=== PATIENT | female | born 1985 | race Caucasian/White ===

== ENCOUNTER 2019-01-26 20:06 | Inpatient (IN) | payer OTHER ==
[~2019-01-26] VITALS: Ht 165.1 cm; Wt 76.3 kg
[2019-01-26] MEDS ORDERED: SODIUM CHLORIDE 0.9% 1,000 ML IV ONE (21:30)
[2019-01-26] MEDS ORDERED: MORPHINE SULFATE 4 MG/ML SYR/VIAL IV ONE (21:30)
[2019-01-26] MEDS ORDERED: ONDANSETRON HCL 4 MG/2 ML VIAL IV ONE (21:30)
[2019-01-26 21:50] LABS: Basophils # (auto) 0.1 uL; Basophils % (auto) 1.1 % (0.0-2.0); Eosinophils # (auto) 0.2 uL; Eosinophils % (auto) 3.2 % (0.0-7.0); Hematocrit 38.5 % (36.0-46.0); Hemoglobin 13.5 g/dL (12.2-16.2); Lymphocytes # (auto) 1.1 uL; Lymphocytes % (auto) 15.1 % (10.0-50.0); Mean Corpuscular Hgb Conc. 34.9 g/dL (32.0-36.0); Mean Corpuscular Volume 88.7 fL (80.0-100.0); Monocytes # (auto) 0.4 uL; Monocytes % (auto) 5.5 % (0.0-12.0); Neutrophils # (auto) 5.3 uL; Neutrophils % (auto) 75.1 % (37.0-80.0); Nucleated Red Blood Cells % 0.1 %; Platelet Count (auto) 285 10^3/uL (140-450); Red Blood Cells 4.34 10^6/uL (4.0-5.20); Red Cell Distribution Width 12.5 % (11.8-14.3); White Blood Cell 7.1 10^3/uL (4.4-10.8)
[2019-01-26 21:59] LABS: Urine Bacteria NONE SEEN /hpf (None Seen); Urine Blood 3+ /uL (Negative); Urine Specific Gravity 1.004 (1.001-1.035); Urine WBC 32 /hpf (0 - 5)
[2019-01-26 22:08] LABS: Albumin 3.5 g/dL (3.4-5.0); BUN/Creatinine Ratio 21.1; Calcium 8.7 mg/dL (8.5-10.1); Potassium 3.9 mmol/L (3.5-5.1)
[2019-01-26 22:16] LABS: Bilirubin, Total 1.1 mg/dL (0.2-1.0); Total Protein 7.2 g/dL (6.4-8.2)
[2019-01-27] VITALS (7 sets, daily range): BP systolic 110–126; BP diastolic 65–73
[2019-01-27] MEDS ORDERED: MORPHINE SULFATE 4 MG/ML SYR/VIAL IV ONE (00:45)
[2019-01-27] MEDS ORDERED: ONDANSETRON HCL 4 MG/2 ML VIAL IV ONE (00:45)
[2019-01-27] MEDS ORDERED: PANTOPRAZOLE 40 MG/10 ML VIAL INJ IV ONE ×2 (01:00→14:15)
[2019-01-27] MEDS ORDERED: HYDROcodone-ACET 5/325MG TAB PO PRN (02:30)
[2019-01-27] MEDS ORDERED: D5W/SOD CHL 0.45% 1,000 ML IV SCH (02:30)
[2019-01-27] MEDS ORDERED: DOCUSATE SOD 100 MG CAP PO PRN (02:30)
[2019-01-27] MEDS ORDERED: DEXTROSE (50%) 50ML SYRG IV PRN (02:30)
--- NOTE | 2019-01-27 03:40 | NUR ---
MS admit from ER [facility] admitted to tele/MS. Patient oriented to Dimple Montague, primary RN, unit, room, bed, and unit policies regarding patient care and visiting hours. Patient weighed by bedscale and encouraged to call if they need something. All questions and concerns addressed, patient verbalized understanding.
[2019-01-27] MEDS: MORPHINE SULFATE 4 MG/ML SYR/VIAL IV PRN ×2 (05:28→09:27)
[2019-01-27] MEDS: InsuLIN REG 1unit/0.01ml Soln (100units/ml) SC SCH ×2 (05:29→11:36)
[2019-01-27] MEDS: ACCU-CHEK COMFORT CURVE STRIP VI SCH ×2 (05:29→11:35)
[2019-01-27] MEDS ORDERED: PAR20T PO (05:35)
[2019-01-27] MEDS ORDERED: THYR90TA PO (05:35)
[2019-01-27] MEDS ORDERED: RANI-185 PO (05:39)
[2019-01-27] MEDS ORDERED: MULTTAB61 OR (05:39)
[2019-01-27] MEDS ORDERED: MELO1TAB56 PO (05:39)
[2019-01-27] MEDS ORDERED: CALCTAB25 PO (05:39)
[2019-01-27] MEDS ORDERED: FERR-7 PO (05:39)
[2019-01-27] MEDS ORDERED: OMEP20TA PO (05:39)
[2019-01-27] MEDS ORDERED: GABA300C10 PO (05:39)
[2019-01-27] MEDS ORDERED: BACL20TA PO (05:39)
--- NOTE | 2019-01-27 08:05 | NUR ---
Received pt sleeping, resting comfortably, call light within reach, no pain or distress noted at this time, will continue to monitor pt.
--- NOTE | 2019-01-27 11:13 | NUR ---
Called and spoke to Dr. Marquez regarding pt having nausea and no PRN nausea medication order on file, orders received for zofran 4 mg iv Q4hr PRN.
[2019-01-27] MEDS ORDERED: ONDANSETRON HCL 4 MG/2 ML VIAL ONE (11:21)
[2019-01-27] MEDS: ONDANSETRON HCL 4 MG/2 ML VIAL IV PRN ×3 (11:31→20:53)
--- NOTE | 2019-01-27 13:00 | NUR ---
Page Dr. Marquez to inform her that pt still having nausea and vomiting even after the zofran given, as per Dr. Marquez she will come and see pt soon.
[2019-01-27] MEDS ORDERED: METOCLOPRAMIDE HCL 5MG/ml INJ 2ml VIAL ONE (13:06)
--- NOTE | 2019-01-27 13:15 | NUR ---
Dr. Marquez at bed side to see pt. Doctor discussed the plan of care with pt.
[2019-01-27 13:42] LABS: Hepatitis A Ab IgM Negative; Hepatitis B Core IgM Negative; Hepatitis B Surface Antigen Negative (Negative)
[2019-01-27 13:43] LABS: Hepatitis C Antibody Negative (Negative)
[2019-01-27] MEDS: D5W/SOD CHL 0.45%/KCL 20MEQ 1,000 ML IV SCH ×3 (13:48→21:51)
[2019-01-27] MEDS: KETOROLAC TROMETH 30 MG/ML 1ML VIAL IV PRN ×2 (13:49→20:53)
[2019-01-27 13:55] LABS: Amylase 59 U/L (25-115); Lipase 168 U/L (73-393)
[2019-01-27 13:57] LABS: INR 1.08 (0.9-1.15)
[2019-01-27 14:00] LABS: Albumin 3.7 g/dL (3.4-5.0); Calcium 8.5 mg/dL (8.5-10.1); Potassium 3.3 mmol/L (3.5-5.1)
[2019-01-27 14:07] LABS: BUN/Creatinine Ratio 18.9; Bilirubin, Total 0.9 mg/dL (0.2-1.0); Total Protein 6.8 g/dL (6.4-8.2)
[2019-01-27 16:02] LABS: Alcohol, Urine < 3.0 mg/dL (0-5); Amphetamine Screen, Urine NEGATIVE (NEGATIVE); Barbiturate Scree,Urine NEGATIVE (NEGATIVE); Benzodiazephine Screen, Urine NEGATIVE (NEGATIVE); Cannabinoid Screen, Urine POSITIVE (NEGATIVE); Cocaine Screen, Urine NEGATIVE (NEGATIVE); Phencyclidine Screen, Urine NEGATIVE (NEGATIVE)
[2019-01-27] MEDS ORDERED: POTASSIUM CHLORIDE 20 MEQ, LIDOCAINE 1% (LOCAL ANESTH.) 2 ML in SODIUM CHL 0.9% 100 ML IV ONE (16:15)
[2019-01-27 16:24] LABS: Opiate Scree,Urine POSITIVE (NEGATIVE)
[2019-01-27] MEDS: MORPHINE SULF INJ 2 MG/ML SYRINGE 1ML IV PRN (17:14)
[2019-01-27] MEDS: METOCLOPRAMIDE HCL 5MG/ml INJ 2ml VIAL IV PRN (21:51)
[2019-01-28] MEDS: KETOROLAC TROMETH 30 MG/ML 1ML VIAL IV PRN ×3 (04:56→17:55)
[2019-01-28] MEDS: D5W/SOD CHL 0.45%/KCL 20MEQ 1,000 ML IV SCH ×3 (04:57→23:42)
--- NOTE | 2019-01-28 04:58 | NUR ---
PT C/O ABDOMINAL PAIN 09/18 REQUESTING PAIN MEDICATION BUT REFUSES MORPHINE DUE TO DEVLIN. ADMINSITERED TORADOL 15MG IV PRESCRIBED. WILL CONTINUE TO MONITOR PATIENT.
[2019-01-28 05:00] VITALS: BP 94/67
[2019-01-28 06:30] LABS: Basophils # (auto) 0 uL; Basophils % (auto) 0.6 % (0.0-2.0); Eosinophils # (auto) 0.2 uL; Eosinophils % (auto) 3.3 % (0.0-7.0); Hematocrit 37.6 % (36.0-46.0); Hemoglobin 13.1 g/dL (12.2-16.2); Lymphocytes # (auto) 1.5 uL; Lymphocytes % (auto) 26.8 % (10.0-50.0); Mean Corpuscular Hemoglobin 31.3 pg (28.0-32.0); Mean Corpuscular Hgb Conc. 34.7 g/dL (32.0-36.0); Monocytes # (auto) 0.3 uL; Neutrophils # (auto) 3.7 uL; Neutrophils % (auto) 64.3 % (37.0-80.0); Platelet Count (auto) 243 10^3/uL (140-450); Red Blood Cells 4.17 10^6/uL (4.0-5.20); Red Cell Distribution Width 12.5 % (11.8-14.3); White Blood Cell 5.8 10^3/uL (4.4-10.8)
[2019-01-28 06:44] LABS: Albumin 3.4 g/dL (3.4-5.0); Calcium 8.6 mg/dL (8.5-10.1); Potassium 4.1 mmol/L (3.5-5.1)
--- NOTE | 2019-01-28 06:49 | NUR ---
PRE-OP PATIENT TRANSPORTED VIA GURNEY TO OR FOR [facility]ST[facility] WITH DR DODD TODAY.
[2019-01-28 06:54] LABS: BUN/Creatinine Ratio 17.2; Bilirubin, Total 0.5 mg/dL (0.2-1.0); Total Protein 6.5 g/dL (6.4-8.2)
[2019-01-28] MEDS ORDERED: NEOSTIGMINE 1 MG/ML INJ (10mg/10ML VIAL) IV ONE (07:18)
[2019-01-28] MEDS ORDERED: POVIDONE IODINE 10 % TOPICAL OINT 30GM TOP ONE (07:18)
[2019-01-28] MEDS ORDERED: GLYCOPYRROLATE 0.2 MG/ML 1ML VIAL IV ONE (07:18)
[2019-01-28] MEDS ORDERED: LEVOFLOXACIN 500MG 100 ML IV ONE (07:26)
[2019-01-28] MEDS ORDERED: ePHEDrine SULFATE 50 MG/ML AMP IV PRN (07:45)
[2019-01-28] MEDS ORDERED: ACCU-CHEK COMFORT CURVE STRIP VI ONE (07:45)
[2019-01-28] MEDS ORDERED: KETOROLAC TROMETH 30 MG/ML 1ML VIAL IV ONE (07:45)
[2019-01-28] MEDS ORDERED: HYDROmorphone HCL 2 MG/ML VL IV PRN (07:45)
[2019-01-28] MEDS ORDERED: fentaNYL CITRATE 100 MCG/2 ML VL ONE (07:45)
[2019-01-28] MEDS ORDERED: MIDAZOLAM HCL 1MG/1ML-2 ML VIAL ONE (07:45)
[2019-01-28] MEDS ORDERED: MORPHINE SULFATE 4 MG/ML SYR/VIAL IV PRN (07:45)
[2019-01-28] MEDS ORDERED: MEPERIDINE HCL (50 MG/ML) 1 ML VIAL ONE (07:45)
[2019-01-28] MEDS ORDERED: ONDANSETRON HCL 4 MG/2 ML VIAL IV PRN (07:45)
[2019-01-28] MEDS ORDERED: LABETALOL HCL 5 MG/ML 4ML SYRINGE IV PRN (07:45)
[2019-01-28] MEDS ORDERED: MIDAZOLAM HCL 1MG/1ML-2 ML VIAL IV PRN (07:45)
[2019-01-28] MEDS ORDERED: PROPOFOL 10 MG/ML 20 ML IV ONE (08:28)
[2019-01-28] MEDS ORDERED: ROCURONIUM 10MG/ML 10ML VIAL IV ONE (08:28)
[2019-01-28] MEDS ORDERED: DexAMETHasone SOD PHOS 10MG/1ML VIAL INJ ONE (08:28)
--- NOTE | 2019-01-28 09:00 | NUR ---
OPENING SHIFT NOTE ASSUMED CARE OF PT. PT RETURNED FROM POST OP AFTER LAP DESTINY WITH DR DODD. NO SOB OR SIGNS OF DISTRESS NOTED. FAMILY MEMBER IN ROOM. INSTRUCTED ON POC AND TO CALL FOR HELP PRN. BED IN LOWEST POSITION WITH SIDE RAILS UP X2. WILL CONTINUE TO MONITOR.
[2019-01-28] MEDS: PANTOPRAZOLE 40 MG/10 ML VIAL INJ IV SCH (11:06)
[2019-01-28] MEDS: METOCLOPRAMIDE HCL 5MG/ml INJ 2ml VIAL IV PRN ×2 (11:07→19:48)
[2019-01-28 13:00] VITALS: BP 100/68
[2019-01-28 17:00] VITALS: BP 117/74
[2019-01-28 22:00] VITALS: BP 110/77
--- NOTE | 2019-01-28 22:05 | NUR ---
PT C/O 09/18 ABDOMINAL PAIN S/P LAP DESTINY TODAY REQUESTING PAIN MEDICATION. PATIENT REFUSES TO TAKE MORPHINE BECAUSE OF SIDE EFFECTS OF HEADACHE AND REQUESTING A DIFFERENT MEDICATION. PAGED HOSPITALIST AWAITING ORDERS.
[2019-01-28] MEDS ORDERED: HYDROcodone-ACET 7.5/325MG TAB PO ONE (23:00)
[2019-01-29] MEDS: KETOROLAC TROMETH 30 MG/ML 1ML VIAL IV PRN ×3 (04:13→20:18)
[2019-01-29] MEDS: METOCLOPRAMIDE HCL 5MG/ml INJ 2ml VIAL IV PRN (04:13)
[2019-01-29 05:00] VITALS: BP 120/61
--- NOTE | 2019-01-29 05:30 | NUR ---
PT S/O 09/18 ABDOMINAL PAIN. ADMINISTERED TORADOL AND REGLAN IV PRESCRIBED. PATIENT STATES SHE HAS + FLATUS BUT NO BM YET.
[2019-01-29 06:44] LABS: Basophils # (auto) 0 uL; Basophils % (auto) 0.3 % (0.0-2.0); Eosinophils # (auto) 0.1 uL; Hematocrit 35.3 % (36.0-46.0); Hemoglobin 12.1 g/dL (12.2-16.2); Lymphocytes % (auto) 33.4 % (10.0-50.0); Mean Corpuscular Hemoglobin 30.6 pg (28.0-32.0); Mean Corpuscular Hgb Conc. 34.2 g/dL (32.0-36.0); Mean Corpuscular Volume 89.5 fL (80.0-100.0); Monocytes # (auto) 0.4 uL; Monocytes % (auto) 5.8 % (0.0-12.0); Neutrophils # (auto) 3.6 uL; Neutrophils % (auto) 59.5 % (37.0-80.0); Platelet Count (auto) 250 10^3/uL (140-450); Red Blood Cells 3.95 10^6/uL (4.0-5.20); Red Cell Distribution Width 12.7 % (11.8-14.3); White Blood Cell 6.1 10^3/uL (4.4-10.8)
[2019-01-29 06:55] LABS: Potassium 3.7 mmol/L (3.5-5.1)
[2019-01-29 07:05] LABS: Albumin 3.1 g/dL (3.4-5.0); BUN/Creatinine Ratio 7.8; Bilirubin, Total 1.3 mg/dL (0.2-1.0); Calcium 8.6 mg/dL (8.5-10.1); Total Protein 5.9 g/dL (6.4-8.2)
[2019-01-29 08:00] VITALS: BP 131/77
[2019-01-29] MEDS: PANTOPRAZOLE 40 MG/10 ML VIAL INJ IV SCH (10:43)
[2019-01-29] MEDS ORDERED: DOCUSATE ORAL LIQUID 100 MG/10 ML UD PO ONE (10:45)
[2019-01-29] MEDS ORDERED: LORazepam 2MG/ML-1ML VIAL IV PRN (11:45)
--- NOTE | 2019-01-29 11:58 | NUR ---
NUTRITION CONSULT/ASSESSMENT NOTES Please refer to link notes of nutrition screen form filed under the intervention section of the plan of care for further details. Est. Needs: 1700 kcal to 2100 kcal (20-25 kcal/kgBW), 68 gms to 84 gms pro (0.8-1.0 gms/kgBW). Will continue to monitor pertinent labs and reassess nutrient need prn Thank you for this consult. Addendum: 01/29/19 at [address] Amended: Links added.
[2019-01-29 12:00] VITALS: BP 124/71
[2019-01-29] MEDS: D5W/SOD CHL 0.45%/KCL 20MEQ 1,000 ML IV SCH ×2 (14:00→23:35)
[2019-01-29 17:00] VITALS: BP 125/80
[2019-01-29] MEDS: DOCUSATE ORAL LIQUID 100 MG/10 ML UD PO SCH (20:18)
--- NOTE | 2019-01-29 20:30 | NUR ---
VIC FROM [facility] CALLED REGARDING IF PT HAS BEEN PICKED UP. INFORMED HER PATIENT IS STILL HERE IN THE FACILITY AND [facility] NOT PRESENT. VIC STATES SHE WILL CALLBACK.
--- NOTE | 2019-01-29 20:33 | NUR ---
[facility] ARRIVED AT BEDSIDE FOR TRANSFER.
--- NOTE | 2019-01-29 20:35 | NUR ---
CALLED VIC BACK AT TRANSFER CENTER [phone] INFORMED HER [facility] IS HERE AT BEDSIDE READY TO ACETYLENE TORCH SOLDERER PATIENT. VIC STATES IT IS TOO LATE TO ACETYLENE TORCH SOLDERER PATIENT. TO RESCHEDULE ACETYLENE TORCH SOLDERER AT 0400 01/30/19. SPOKE WITH [facility] STAFF THAT IS PRESENT IN FACILITY. INFORMED [facility] NURSE ACCEPTING FACILITY [facility] IN NOT ACCEPTING PATIENT AT THIS TIME TO TRANSFER PATIENT AT 0400 01/30/19. [facility] NURSE STATES THAT THERE WILL NOT BE ANY AVAILABLE NURSE UNTIL AFTER 0500. CALLED [facility] DISPATCH INFORMED PATIENT IS NOT BEING TRANSFERRED TODAY, RESCHEDULED ACETYLENE TORCH SOLDERER AT 0630 01/30/19. Addendum: 01/29/19 at 2104 by LAINE DON RN RN PATIENT AND FAMILY MADE AWARE OF TRANSFER.
[2019-01-29 22:00] VITALS: BP 103/69
[2019-01-30] MEDS: D5W/SOD CHL 0.45%/KCL 20MEQ 1,000 ML IV SCH ×3 (00:38→20:59)
[2019-01-30 05:00] VITALS: BP 112/67
[2019-01-30] MEDS: KETOROLAC TROMETH 30 MG/ML 1ML VIAL IV PRN ×3 (06:02→21:06)
[2019-01-30 06:47] LABS: Albumin 3.2 g/dL (3.4-5.0)
[2019-01-30 06:52] LABS: % Iron Saturation 11.4 % (15-50)
[2019-01-30 06:56] LABS: Bilirubin, Total 2.3 mg/dL (0.2-1.0); Total Protein 6.2 g/dL (6.4-8.2)
--- NOTE | 2019-01-30 07:40 | NUR ---
Opening Note Received report from shift engineer RN. Patient is awake, alert and oriented x4. No signs or symptoms of distress noted at this time. Patient has abdominal binder, with 3 incisions to abdominal area. Reviewed plan of care with patient, patient verbalized understanding. Bed in low and locked position, call light within reach. Will continue to monitor Q1 hour and PRN.
[2019-01-30 09:00] VITALS: BP 119/71
[2019-01-30] MEDS: LORazepam 0.5 MG TAB PO PRN ×2 (09:45→19:54)
[2019-01-30] MEDS: PANTOPRAZOLE 40 MG/10 ML VIAL INJ IV SCH (09:45)
--- NOTE | 2019-01-30 09:45 | NUR ---
Dr. Marquez at bedside Discussing plan of care with patient. Patient to be NPO for have liver biopsy. Will continue to monitor Q1 hour and PRN.
[2019-01-30] MEDS: DOCUSATE ORAL LIQUID 100 MG/10 ML UD PO SCH ×2 (09:47→21:08)
--- NOTE | 2019-01-30 12:25 | NUR ---
Patient taken down for liver biopsy.
[2019-01-30] MEDS ORDERED: MIDAZOLAM HCL 1MG/1ML-2 ML VIAL IV ONE (12:30)
[2019-01-30] MEDS ORDERED: fentaNYL CITRATE 100 MCG/2 ML VL IV ONE (12:30)
[2019-01-30] MEDS ORDERED: GELATIN 1 SPONGE SIZE 50 TOP ONE (12:57)
[2019-01-30] MEDS ORDERED: LIDOCAINE 2%HCL (LOCAL ANESTH.) INJ 20ML MDV ONE (13:10)
[2019-01-30 13:19] VITALS: BP 106/72
--- NOTE | 2019-01-30 13:48 | NUR ---
Patient back to room Patient s/p liver biopsy. Patient instructed to lay on right side for 2 hour, ad strict bedrest for 4 hours. Patient verbalized understanding. Bed in low and locked position, call light within reach. Will continue to monitor Q1 hour and PRN.
[2019-01-30 17:00] VITALS: BP 138/77
[2019-01-30] MEDS: MORPHINE SULF INJ 2 MG/ML SYRINGE 1ML IV PRN ×2 (17:14→21:03)
--- NOTE | 2019-01-30 17:45 | NUR ---
Rounds Patient assisted to restroom. No signs or symptoms of distress. Patient tolerated well.
[2019-01-30] MEDS: ONDANSETRON HCL 4 MG/2 ML VIAL IV PRN (18:11)
--- NOTE | 2019-01-30 19:16 | NUR ---
Closing Note Report given to night shift manager RN. No signs or symptoms of distress noted at this time.
[2019-01-30 22:00] VITALS: BP 127/73
[2019-01-31 05:00] VITALS: BP 97/55
[2019-01-31 05:56] LABS: Albumin 3.3 g/dL (3.4-5.0); Bilirubin, Direct 2.6 mg/dL (0-0.2); Bilirubin, Total 3.1 mg/dL (0.2-1.0); Total Protein 6.4 g/dL (6.4-8.2)
--- NOTE | 2019-01-31 07:30 | NUR ---
Opening Note Received report from shift production supervisor RN. Patient is awake, alert and oriented x4. No signs or symptoms of distress noted at this time. Patient states abdominal pain 6/10 and is requesting pain medications. Patient has abdominal binder, with 3 incisions to abdominal area. Reviewed plan of care with patient, patient verbalized understanding. Bed in low and locked position, call light within reach. Will continue to monitor Q1 hour and PRN.
[2019-01-31] MEDS: MORPHINE SULF INJ 2 MG/ML SYRINGE 1ML IV PRN (08:33)
[2019-01-31] MEDS: PANTOPRAZOLE 40 MG/10 ML VIAL INJ IV SCH (08:37)
[2019-01-31] MEDS: D5W/SOD CHL 0.45%/KCL 20MEQ 1,000 ML IV SCH (08:40)
[2019-01-31 09:00] VITALS: BP 107/72
[2019-01-31] MEDS ORDERED: ONDA-144 PO (09:59)
[2019-01-31] MEDS: DOCUSATE ORAL LIQUID 100 MG/10 ML UD PO SCH (10:00)
--- NOTE | 2019-01-31 10:20 | NUR ---
Dr. Marquez at bedside Discussing plan of care with patient. Patient to be discharged today. Will continue to monitor Q1 hour and PRN.
[2019-01-31 11:29] VITALS: BP 107/72
[2019-01-31] MEDS: KETOROLAC TROMETH 30 MG/ML 1ML VIAL IV PRN (11:46)
[2019-01-31 12:55] VITALS: BP 120/68
--- NOTE | 2019-01-31 12:55 | NUR ---
Discharge instructions given as ordered. Encourage to follow up with PMD as instructed. All questions and concerns addressed. Patient verbalized understanding. Medication reconciliation form completed and copy given to patient. IV removed with catheter intact, pressure dressing applied. New prescriptions given to patient. Patient refused wheelchair, patient ambulated with all personal belongings, accompanied by family member. No distress noted at time of departure. Signed: 01/31/19 at 1306 by DIAN SAL <Co-Signature Required> Co-Signed: 01/31/19 at 1306 by MERCEDES CHAPMAN RN RN
[2019-02-01 07:09] LABS: Immunoglobulin G, Serum 918 mg/dL (700-1600)
== END 2019-01-31 12:55 | disposition home or self-care (01) | DRG 263 ==
LOC: ER 20:10 → OVERFLOW 20:11 → WEST WING 01-27 03:39
PROVIDERS: ADMIT Hospitalist; ATTEND Internal Medicine
PROC: 0FT44ZZ Resection of Gallbladder, Percutaneous Endoscopic Approach (ICD-10-PCS; principal; 2019-01-28 07:45)
PROC: 0FB03ZX Excision of Liver, Percutaneous Approach, Diagnostic (ICD-10-PCS; 2019-01-30)
DX: K80.10 Calculus of gallbladder with chronic cholecystitis without obstruction (principal); B17.9 Acute viral hepatitis, unspecified; F41.9 Anxiety disorder, unspecified; K21.9 Gastro-esophageal reflux disease without esophagitis; E11.9 Type 2 diabetes mellitus without complications; E66.9 Obesity, unspecified; N39.0 Urinary tract infection, site not specified; R31.9 Hematuria, unspecified; I10 Essential (primary) hypertension; N92.6 Irregular menstruation, unspecified; Z80.3 Family history of malignant neoplasm of breast; Z86.711 Personal history of pulmonary embolism; Z88.1 Allergy status to other antibiotic agents; Z68.28 Body mass index [BMI] 28.0-28.9, adult
CPT/HCPCS: 10022; 36415; 71045; 74176; 76705; 76942; 80053; 80074; 80076; 80307; 81001; 82150; 82390; 82784; 82962; 83540; 83550; 83690; 84702; 85025; 85610; 85730; 86038; 86850; 86900; 86901; 93005; 96361; 96374; 96375; C9113; G0378; J1100; J1885; J1956; J2001; J2250; J2405; J2704